=== PATIENT | female | born 1985 | race Two or more races ===

== ENCOUNTER 2016-04-14 20:26 | Emergency (ER) | payer SELFPAY ==
[2016-04-14] MEDS ORDERED: DOXYCYCLINE HYCLATE 100 MG TABLET ONE (21:04)
[2016-04-14] MEDS ORDERED: HYDROCODONE/ACETAMINOPHEN 5/325MG TABLET ONE (21:04)
== END 2016-04-14 21:14 | disposition home or self-care (01) ==
LOC: ED 20:26
DX: L02.211 Cutaneous abscess of abdominal wall (principal); L73.2 Hidradenitis suppurativa; F17.210 Nicotine dependence, cigarettes, uncomplicated; Z86.14 Personal history of Methicillin resistant Staphylococcus aureus infection
CPT/HCPCS: 99283 ×2; 10061 ×2; A9270 ×2